=== PATIENT | male | born 1960 | race Caucasian/White ===

== ENCOUNTER 2023-02-16 19:18 | Inpatient (IN) | payer OTHER ==
[~2023-02-16] VITALS: Ht 182.9 cm; Wt 68.0 kg
[2023-02-16 19:28] VITALS: BP_SYST 140
[2023-02-16] MEDS ORDERED: NS 1000 ML IV.SOLN IV ONE (21:00)
[2023-02-16] MEDS ORDERED: DEXTROSE 50% JECT 50 ML DISP.SYRIN IVP ONE ×3 (21:00→23:00)
[2023-02-16] MEDS ORDERED: cefTRIAXone 1 GM IVPB PREMIX 50 ML IV ONE (21:00)
[2023-02-16] MEDS ORDERED: LORazepam 2 MG/ML VIAL IVP ONE (21:00)
[2023-02-16] MEDS ORDERED: NACL 0.9% 1,000 ML IV ONE (21:15)
[2023-02-16 21:17] LABS: BASOPHILS % (AUTO) 0.4 % (0.0-2.0); EOSINOPHILS % (AUTO) 0.4 % (0.0-4.0); HEMATOCRIT 41.6 % (36-54); HEMOGLOBIN 14.2 g/dL (14.0-18.0); LYMPHOCYTES # (AUTO) 0.9 K/uL (1.0-5.5); LYMPHOCYTES % (AUTO) 8.8 % (20.5-51.5); MEAN CORPUSCULAR HEMOGLOBIN 33 pg (27-31); MEAN CORPUSCULAR HGB CONC 34 % (32-36); MEAN CORPUSCULAR VOLUME 95 fL (79.0-98.0); MONOCYTES # (AUTO) 0.6 K/uL (0.0-1.0); MONOCYTES % (AUTO) 6.3 % (1.7-9.3); NEUTROPHILS # (AUTO) 8.2 K/uL (1.8-7.7); NEUTROPHILS % (AUTO) 84.1 % (40.0-70.0); PLATELET COUNT (AUTO) 168 K/uL (130-430); RED BLOOD CELL COUNT(AUTO) 4.36 MIL/uL (4.2-6.2); WHITE BLOOD COUNT (AUTO) 9.8 K/uL (4.8-10.8)
[2023-02-16 21:37] LABS: ANION GAP 13 (5-15); CALCIUM 8.9 mg/dL (8.4-11.0); CHLORIDE 106 mmol/L (98-107); CREATININE 0.97 mg/dL (0.55-1.30); GFR AFRICAN AMERICAN 101 mL/min (>90); UREA NITROGEN, BLOOD 16 mg/dL (8-21)
[2023-02-16 21:40] LABS: ALANINE AMINOTRANSFERASE 23 U/L (12-78); ALBUMIN 3.8 g/dL (3.4-4.8); ASPARTATE AMINOTRANSFERASE 16 U/L (10-37); TOTAL BILIRUBIN 0.4 mg/dL (0.0-1.0)
[2023-02-16] MEDS ORDERED: D10W 1,000 ML IV SCH (21:45)
[2023-02-16] MEDS ORDERED: HALOPERIDOL LACTATE 5 MG/ML VIAL IM ONE (21:45)
[2023-02-16 21:53] LABS: GLUCOSE 24 mg/dL (70-99)
[2023-02-16] MEDS ORDERED: POTASSIUM CHLORIDE 20 MEQ TAB.PRT.SR PO ONE ×2 (22:30→23:45)
[2023-02-16] MEDS ORDERED: DEXTROSE 50% JECT 50 ML DISP.SYRIN ONE (22:50)
[2023-02-16 23:14] VITALS: BP_SYST 130
[2023-02-16 23:27] LABS: BILIRUBIN,URINE NEGATIVE (NEGATIVE); BLOOD, URINE NEGATIVE (NEGATIVE); CLARITY/URINE CLEAR (CLEAR); COLOR,URINE YELLOW (YELLOW); GLUCOSE,URINE 1+ (NEGATIVE); KETONES,URINE NEGATIVE (NEGATIVE); LEUKOCYTE ESTERASE ,URINE NEGATIVE (NEGATIVE); NITRITE, URINE NEGATIVE (NEGATIVE); PH,URINE 5.5 (5.0-8.0); PROTEIN URINE NEGATIVE (NEGATIVE); UROBILINOGEN,URINE 0.2 (0.2-1.0)
[2023-02-16] MEDS ORDERED: DEXTROSE 50% JECT 50 ML DISP.SYRIN IVP PRN (23:30)
[2023-02-16 23:40] LABS: BARBITURATE, URINE NEGATIVE (NEG <=200); BENZODIAZEPINE, URINE NEGATIVE (NEG <=150); CANNABINOID, URINE NEGATIVE (NEG <=50); COCAINE, URINE NEGATIVE (NEG <=150); METHAMPHETAMINES SCREEN,URINE NEGATIVE (NEG <=500); OPIATE, URINE NEGATIVE (NEG <=100); PHENCYCLIDINE SCREEN,URINE NEGATIVE (NEG <=25); UR TRICYCLIC ANTIDEPRESSANTS NEGATIVE (NEG <=300); URINE AMPHETAMINE NEGATIVE (NEG <=500); URINE METHADONE NEGATIVE (NEG <=200); URINE OXYCODONE SCREEN NEGATIVE (NEG <=100); URINE PROPOXYPHENE SCREEN NEGATIVE (NEG <=300)
[2023-02-17] MEDS ORDERED: POTASSIUM CHLORIDE 40 MEQ in NS 250 ML IV ONE ×2
[2023-02-17] MEDS: KCL 20 mEq in 100 mL (PREMIX) 100 ML IV SCH ×2 (00:39→01:57)
[2023-02-17] MEDS ORDERED: LORazepam 2 MG/ML VIAL IVP PRN (06:00)
[2023-02-17] MEDS ORDERED: HALOPERIDOL LACTATE 5 MG/ML VIAL IM PRN (06:00)
[2023-02-17 07:02] LABS: ALBUMIN 3.4 g/dL (3.4-4.8); CALCIUM 8.4 mg/dL (8.4-11.0); CREATININE 0.69 mg/dL (0.55-1.30); TOTAL BILIRUBIN 0.5 mg/dL (0.0-1.0)
[2023-02-17 08:08] VITALS: BP_SYST 142
[2023-02-17] MEDS: POTASSIUM CHLORIDE 20 MEQ TAB.PRT.SR PO SCH ×2 (09:03→20:47)
[2023-02-17] MEDS: D10W 500 ML IV SCH ×2 (09:12→17:20)
[2023-02-17 09:22] LABS: BASOPHILS % (AUTO) 0.5 % (0.0-2.0); EOSINOPHILS # (AUTO) 0.1 K/uL (0.0-0.4); EOSINOPHILS % (AUTO) 1.7 % (0.0-4.0); HEMATOCRIT 39.9 % (36-54); HEMOGLOBIN 13.5 g/dL (14.0-18.0); LYMPHOCYTES % (AUTO) 12.3 % (20.5-51.5); MEAN CORPUSCULAR HEMOGLOBIN 32 pg (27-31); MEAN CORPUSCULAR HGB CONC 34 % (32-36); MEAN CORPUSCULAR VOLUME 95 fL (79.0-98.0); MONOCYTES # (AUTO) 0.9 K/uL (0.0-1.0); MONOCYTES % (AUTO) 10.5 % (1.7-9.3); NEUTROPHILS # (AUTO) 6.2 K/uL (1.8-7.7); PLATELET COUNT (AUTO) 128 K/uL (130-430); WHITE BLOOD COUNT (AUTO) 8.3 K/uL (4.8-10.8)
[2023-02-17] MEDS ORDERED: QUEtiapine FUMARATE 25 MG TABLET PO ONE (11:00)
[2023-02-17] MEDS ORDERED: MAGNESIUM SULFATE IN WATER 100 ML IV ONE (11:45)
[2023-02-17 12:34] VITALS: BP_SYST 132
[2023-02-17 15:55] VITALS: BP_SYST 124
[2023-02-17 19:45] VITALS: BP_SYST 120
[2023-02-17] MEDS: QUEtiapine FUMARATE 25 MG TABLET PO SCH (20:47)
[2023-02-17] MEDS ORDERED: D5W 1,000 ML IV SCH (22:00)
[2023-02-18 00:13] VITALS: BP_SYST 99
[2023-02-18 08:00] VITALS: BP_SYST 110
[2023-02-18] MEDS: POTASSIUM CHLORIDE 20 MEQ TAB.PRT.SR PO SCH ×2 (08:48→20:49)
[2023-02-18] MEDS: QUEtiapine FUMARATE 25 MG TABLET PO SCH ×2 (08:49→20:50)
[2023-02-18 11:35] VITALS: BP_SYST 100
[2023-02-18 17:40] VITALS: BP_SYST 105
[2023-02-18 20:00] VITALS: BP_SYST 113
[2023-02-19] VITALS: BP_SYST 105
[2023-02-19 08:31] VITALS: BP_SYST 142
[2023-02-19] MEDS: POTASSIUM CHLORIDE 20 MEQ TAB.PRT.SR PO SCH ×2 (09:52→20:33)
[2023-02-19] MEDS: QUEtiapine FUMARATE 25 MG TABLET PO SCH ×2 (09:55→20:32)
[2023-02-19 12:00] VITALS: BP_SYST 118
[2023-02-19 20:00] VITALS: BP_SYST 121
[2023-02-20 00:31] VITALS: BP_SYST 119
[2023-02-20 08:08] VITALS: BP_SYST 134
[2023-02-20] MEDS: QUEtiapine FUMARATE 25 MG TABLET PO SCH ×2 (08:45→21:34)
[2023-02-20] MEDS: POTASSIUM CHLORIDE 20 MEQ TAB.PRT.SR PO SCH ×3 (08:45→21:28)
[2023-02-20 12:00] VITALS: BP_SYST 129
[2023-02-20 16:00] VITALS: BP_SYST 128
[2023-02-20 20:00] VITALS: BP_SYST 114
[2023-02-21 04:05] VITALS: BP_SYST 114
[2023-02-21 08:56] VITALS: BP_SYST 131
[2023-02-21] MEDS: QUEtiapine FUMARATE 25 MG TABLET PO SCH ×2 (09:30→21:50)
[2023-02-21 12:20] VITALS: BP_SYST 118
[2023-02-21 16:30] VITALS: BP_SYST 154
[2023-02-21] MEDS ORDERED: SER25 PO (17:48)
[2023-02-21] MEDS: POTASSIUM CHLORIDE 20 MEQ TAB.PRT.SR PO SCH (21:50)
[2023-02-22 05:11] VITALS: BP_SYST 122
[2023-02-22 08:44] VITALS: BP_SYST 116
[2023-02-22] MEDS: QUEtiapine FUMARATE 25 MG TABLET PO SCH (09:12)
[2023-02-22] MEDS: POTASSIUM CHLORIDE 20 MEQ TAB.PRT.SR PO SCH (09:12)
[2023-02-22 09:52] VITALS: BP_SYST 116
== END 2023-02-22 11:45 | disposition home or self-care (01) | DRG 640 ==
LOC: SED 19:18 → STU 22:46 → SMU 02-20 16:10
PROVIDERS: ADMIT Internal Medicine; ATTEND Internal Medicine
DX: E16.2 Hypoglycemia, unspecified (principal); G93.41 Metabolic encephalopathy; F23 Brief psychotic disorder; E87.20 Acidosis, unspecified; I10 Essential (primary) hypertension; E78.00 Pure hypercholesterolemia, unspecified; E83.42 Hypomagnesemia; Z20.822 Contact with and (suspected) exposure to COVID-19; Z88.0 Allergy status to penicillin
CPT/HCPCS: 36415; 71045; 80053; 80307; 81003; 82962; 83525; 83605; 83735; 83880; 84484; 85025; 87040; 87086; 93005; 96365; 96372; 96375; 99285; G0378; J0696; J1630; J2060; J3475; J3480